=== PATIENT | male | born 1975 | race Caucasian/White ===

== ENCOUNTER 2021-04-20 07:10 | Emergency (ER) | payer OTHER ==
--- NOTE | 2021-04-20 07:57 | CR ---
Chest: Frontal view of the chest was obtained. Comparison: No prior chest imaging is available. Heart size and mediastinum are within normal limits. Lungs are clear with no acute parenchymal change. Bony structures show nothing acute. Impression: 1. Nothing acute is seen on portable chest x-ray. Diagnostic code #1
--- NOTE | 2021-04-20 08:26 | EDM.PDOC ---
ED HPI GENERAL MEDICAL PROBLEM - General Chief Complaint: Chest Pain Stated Complaint: CHEST PAIN\SOB Time Seen by Provider: 04/20/21 07:23 Source of Information: Reports: Patient, RN Notes Reviewed - History of Present Illness INITIAL COMMENTS - FREE TEXT/NARRATIVE: 45 yr old male with onset of chills, cough, dsypnea yesterday. Feels worse today. Unvaccinated. No vomiting or diarrhea. Left Middle Chest Pain Score (Numeric/FACES): 7 - Related Data Allergies Allergy/AdvReac Type Severity Reaction Status Date / Time No Known Allergies Allergy Verified 04/20/21 07:26 Home Meds: Home Meds . [No Known Home Meds] 04/20/21 [History] Past Medical History Neurological History: Reports: Concussion Social & Family History - Tobacco Use Tobacco Use Status *Q: Current Every Day Tobacco User Years of Tobacco use: 20 Packs/Tins Daily: 0.5 - Caffeine Use Caffeine Use: Reports: Coffee - Recreational Drug Use Recreational Drug Use: No ED ROS GENERAL - Review of Systems Review Of Systems: See Below Constitutional: Reports: Fever, Chills HEENT: Reports: Rhinitis. Denies: Throat Pain Respiratory: Reports: Shortness of Breath, Cough Cardiovascular: Reports: Chest Pain GI/Abdominal: Reports: Decreased Appetite. Denies: Vomiting Musculoskeletal: Reports: Other (myalgias) Neurological: Reports: Headache ED EXAM, GENERAL - Physical Exam Exam: See Below General Appearance: Alert, Moderate Distress Head: Atraumatic Neck: Supple Respiratory/Chest: No Respiratory Distress, Lungs Clear, Normal Breath Sounds. No: Rhonchi, Wheezing Cardiovascular: Tachycardia Extremities: Normal Inspection. No: Pedal Edema, Leg Pain Skin Exam: Warm, Dry #1 Interpretation EKG Date: 04/20/21 Rhythm: Other (sinus tachycardia) Rate (Beats/Min): 106 [place]: Normal P-Wave: Present QRS: Other (q waves AVL) ST-T: Other (mild st depression V4-V6.) Course - Vital Signs Last Recorded V/S: Last Vital Signs Temp 98.4 F 04/20/21 09:32 Pulse 99 04/20/21 09:32 Resp 20 04/20/21 09:32 BP 162/105 H 04/20/21 09:32 Pulse Ox 95 04/20/21 09:32 - Orders/Labs/Meds Labs: Laboratory Tests 04/20/21 Range/Units 07:20 SARS-CoV-2 RNA ([facility]) Positive H (NEGATIVE) - Re-Assessments/Exams Free Text/Narrative Re-Assessment/Exam: 04/20/21 08:21 CXR normal. 04/20/21 09:18. covid pos. as expected Departure - Departure Time of Disposition: 09:18 Disposition: Home, Self-Care 01 Condition: Fair Clinical Impression: COVID-19 virus infection - Discharge Information Instructions: COVID-19 Frequently Asked Questions Referrals: PCP,None [Primary Care Provider] - Forms: ED Department Discharge Additional Instructions: Self isolate for at least another 9 days. Drink plenty of fluids. [place] diet as tolerated. Advil or ibuprofen 800 mg 3 times daily with food. You may take tylenol in between doses for extra pain relief. Return to ED for severe difficulty breathing or otherwise as needed. Sepsis Event Note (ED) - Evaluation Sepsis Screening Result: No Definite Risk - Focused Exam Vital Signs: Vital Signs Temp Pulse Resp BP Pulse Ox 04/20/21 09:32 98.4 F 99 20 162/105 H 95 04/20/21 07:10 98.6 F 103 H 22 H 166/108 H 96
== END 2021-04-20 09:32 | disposition home or self-care (01) ==
LOC: JD.ED 07:10
DX: U07.1 COVID-19 (principal); Z72.0 Tobacco use
CPT/HCPCS: 71045; 71045-26; 93005; 99285-25; U0002